=== PATIENT | male | born 1940 | race Two or more races ===

== ENCOUNTER 2018-09-10 09:02 | Outpatient (CLI) | payer MEDICARE, OTHER ==
[~2018-09-10 09:02] MED LIST: ASPIRIN81 MG ORAL; ATORVASTATIN CA20 MG ORAL; CELEBREX200 MG ORAL; FLOMAX0.4 MG ORAL; FLUOXETINE HCL20 M2 ORAL; LORAZEPAM1 MG ORAL; MIRTAZAPINE15 M3 ORAL; PROSCAR5 MG ORAL; TYLENOL650 MG/20. ORAL
--- NOTE | 2018-09-10 09:32 | General Progress Note ---
Assessment/Plan Problem List: (1) HP negative Gastritis (2) Chronic constipation ICD Codes: K59.09 - Other constipation SNOMED: 149087968 (3) Internal hemorrhoid ICD Codes: K64.8 - Other hemorrhoids SNOMED: 27487363 Assessment/Plan: repeat colonoscopy in 5 years RTC PRN Subjective ROS Limited/Unobtainable: Yes Allergies: Coded Allergies: No Known Allergies (Unverified , 08/09/18) Objective General Appearance: alert EENT: normal ENT inspection Neck: supple Cardiovascular: normal rate Respiratory/Chest: lungs clear Abdomen: normal bowel sounds, non tender, soft Extremities: non-tender Konstantin Lancaster MD Sep 10, 2018 09:32
[2018-09-10 11:59] VITALS: BP 138/74
== END 2018-09-10 11:00 | disposition home or self-care (01) ==
LOC: PAN 09:02
DX: K29.70 Gastritis, unspecified, without bleeding (principal); K59.09 Other constipation; K64.8 Other hemorrhoids
CPT/HCPCS: 99212